=== PATIENT | female | born 1950 | race Caucasian/White ===

== ENCOUNTER 2021-03-25 19:53 | Inpatient (IN) | payer BC, MEDICARE, OTHER ==
[~2021-03-25] VITALS: Ht 165.1 cm; Wt 78.0 kg
[~2021-03-25 19:53] MED LIST: CLON0.5T PO
--- NOTE | 2021-03-25 19:53 | NUR ---
[id number] C/O RT LEG PAIN COMING FROM BACK AREA, STATES IT COULD BE SCIATICA DENIES ANY TRAUMA, PT AAOX4, DENEIS ANY SOB/CP. PLACED ON MONITOR. VSS, NAD PENDING ER PROVIDER ERIC
[2021-03-25] MEDS ORDERED: HYDROCODONE/APAP 5/325MG TABLET PO ONE (20:30)
[2021-03-25] MEDS ORDERED: HYDROCODONE/APAP 5/325MG TABLET ONE (20:50)
[2021-03-25 21:45] LABS: BASOPHILS # (AUTO) 0.1 /CMM (0.0-0.2); BASOPHILS % (AUTO) 0.7 % (0.0-2.0); EOSINOPHILS % (AUTO) 0.8 % (0.0-6.0); HEMATOCRIT 50 % (33-45); HEMOGLOBIN 16.9 g/dL (11.5-14.8); LYMPHOCYTES # (AUTO) 2.4 /CMM (0.8-4.8); LYMPHOCYTES % (AUTO) 25.7 % (20.0-44.0); MEAN CORPUSCULAR HGB CONC 34 g/dl (31.0-36.0); MEAN CORPUSCULAR VOLUME 97 fL (82-100); MONOCYTES # (AUTO) 0.5 /CMM (0.1-1.30); MONOCYTES % (AUTO) 5.6 % (2.0-12.0); NEUTROPHILS # (AUTO) 6.3 /CMM (1.8-8.9); NEUTROPHILS % (AUTO) 67.2 % (43.0-81.0); PLATELET COUNT (AUTO) 200 /CMM (150-450); RED BLOOD CELL COUNT(AUTO) 5.18 MIL/uL (4.0-5.2); WHITE BLOOD COUNT (AUTO) 9.4 K/uL (4.3-11.0)
[2021-03-25 21:54] LABS: CALCIUM, SERUM 9.1 mg/dL (8.5-10.1); CREATININE 0.8 mg/dL (0.6-1.3); POTASSIUM 4.4 mmol/L (3.5-5.1)
[2021-03-25] MEDS ORDERED: MAG HYDROX/AL HYDROX/SIMETH 30 ML UDC PO PRN (22:00)
[2021-03-25] MEDS ORDERED: Z GUARD REMEDY 2 OZ OINT TP PRN (22:00)
[2021-03-25] MEDS ORDERED: ONDANSETRON HCL/PF 4 MG/2 ML VIAL IVP PRN (22:00)
[2021-03-25] MEDS ORDERED: MAGNESIUM HYDROXIDE 30 ML UDC PO PRN (22:00)
[2021-03-25] MEDS ORDERED: MORPHINE SULFATE INJ 2 MG/ML DISP.SYRIN IV PRN (22:00)
[2021-03-25] MEDS ORDERED: ACETAMINOPHEN 325 MG TABLET PO PRN (22:00)
[2021-03-25 22:30] LABS: BILIRUBIN,URINE NEGATIVE (NEGATIVE); COLOR,URINE YELLOW (YELLOW); LEUKOCYTE ESTERASE ,URINE SMALL (NEGATIVE); NITRITE, URINE NEGATIVE (NEGATIVE); PROTEIN,URINE NEGATIVE (NEGATIVE); UGLUCOSE NEGATIVE (NEGATIVE); UROBILINOGEN,URINE 0.2 EU/dL (0.2)
[2021-03-25 22:40] LABS: BACTERIA,URINE 1+ /HPF (None Seen); SQUAMOUS EPITHELIAL CELL,UR Few /HPF (None Seen); URINE AMORPHOUS URATE Few /HPF (None Seen); WBC,URINE 21-50 /HPF (0-3)
--- NOTE | 2021-03-25 22:45 | NUR ---
REPORT GIVEN SHAQ STALLINGS FOR TATA
[2021-03-25] MEDS ORDERED: CARV20CP PO (22:47)
[2021-03-25] MEDS ORDERED: DIGO125T PO (22:47)
--- NOTE | 2021-03-25 22:56 | NUR ---
CALL FROM LAB RAPID COVID NEGATIVE.
--- NOTE | 2021-03-25 23:45 | NUR ---
MS SALES REPRESENTATIVE MALT LIQUORS NOTE PT TRANSPORTED VIA GURNEY TO UNIT AT THIS TIME. A/O X4. GAIT IS UNSTEADY. SOB NOTED ON EXERTION. PT ON 2L O2 VIA NC. NO S/S OF RESPIRATORY DISTRESS. PTS SKIN IS INTACT. NO C/O PAIN OR DISCOMFORT AT THIS TIME. IV ACCESS IN LAC #20 HL, INTACT AND PATENT. PT ORIENTED TO ROOM AND UNIT. SAFETY AND ASPIRATION PRECAUTIONS IN PLACE AND MAINTAINED AT ALL TIMES. BED IN LOWEST LOCKED POSITION, HOB ELEVATED, SIDE RAILS UP X2. CALL LIGHT AND TABLE WITHIN REACH. WILL CONTINUE TO MONITOR.
--- NOTE | 2021-03-25 23:45 | NUR ---
PT TRANSPORTED TO 3RD FLOOR
--- NOTE | 2021-03-25 23:50 | NUR ---
DURING BELONGINGS CHECK, 2 MEDICATION BOTTLES WERE NOTED IN PT'S PURSE AT BEDSIDE. PT REFUSED TRANSFER OF 2 MEDICATION BOTTLES TO PHARMACY. EXPLAINED RISKS AND BENEFITS. JOCY HUBER NP AWARE.
[2021-03-26 00:15] VITALS: BP 150/89
[2021-03-26] MEDS ORDERED: NICOTINE PATCH (21MG) 21 MG PATCH.TD24 TD STA (00:29)
--- NOTE | 2021-03-26 00:36 | NUR ---
PT INFORMED JOCY HUBER NP AT BEDSIDE THAT SHE SMOKES 4 PACKS DAILY. RECEIVED ORDER FOR NICOTINE PATCH 21 MG TD STAT. ORDERS READ BACK AND CLARIFIED. NOTED AND CARRIED OUT.
[2021-03-26] MEDS ORDERED: IPRATROPIUM BROMIDE 14 GM INHALER (or 12.9 GM) IH PRN (02:30)
[2021-03-26] MEDS ORDERED: ALBUTEROL FS 2.5 MG/0.5 ML VIAL.NEB NEB PRN (02:30)
[2021-03-26] MEDS: HYDROCODONE/APAP 5/325MG TABLET PO PRN ×4 (02:42→22:52)
--- NOTE | 2021-03-26 02:42 | NUR ---
MS RN PAIN PT C/O ACHING PAIN IN BILATERAL LOWER LEGS, RATED 7/10 ON PAIN SCALE. VSS. PER PT REQUEST, ADMINISTERED NORCO 5-325 MG PO Q4H PRN AT THIS TIME. WILL CONTINUE TO MONITOR.
[2021-03-26] MEDS ORDERED: VANCOMYCIN 1.25 GM in IV D5W 250 ML IV ONE (03:00)
[2021-03-26] MEDS ORDERED: clonazePAM 0.5 MG TABLET PO PRN (03:00)
[2021-03-26] MEDS ORDERED: VANCOMYCIN 1 GM VIAL ONE ×2 (03:59→04:03)
--- NOTE | 2021-03-26 05:19 | NUR ---
IV ACCESS INSERTED IN LEFT WRIST #22, GOOD BLOOD RETURN NOTED. INTACT, PATENT, AND FLUSHING WELL. PT TOLERATED WELL. WILL CONTINUE WITH PLAN OF CARE.
--- NOTE | 2021-03-26 06:55 | NUR ---
MS RN CLOSING NOTE PT IS AWAKE IN BED AT THIS TIME. A/O X4. GAIT IS UNSTEADY. PT ON 2L O2 VIA NC. NO SOB NOTED. NO S/S OF RESPIRATORY DISTRESS. IV ACCESS IS INTACT, PATENT, AND FLUSHING WELL. ALL NEEDS HAVE BEEN MET. PAIN MANAGEMENT ADMINISTERED PER ORDER. SAFETY AND ASPIRATION PRECAUTIONS IN PLACE AND MAINTAINED AT ALL TIMES. BED IN LOWEST LOCKED POSITION, HOB ELEVATED, SIDE RAILS UP X2. CALL LIGHT AND TABLE WITHIN REACH. WILL ENDORSE TO ONCOMING NURSE FOR CONTINUITY OF CARE.
[2021-03-26 06:59] LABS: BASOPHILS % (AUTO) 0.5 % (0.0-2.0); HEMATOCRIT 50 % (33-45); HEMOGLOBIN 16.4 g/dL (11.5-14.8); LYMPHOCYTES # (AUTO) 2.4 /CMM (0.8-4.8); LYMPHOCYTES % (AUTO) 24.3 % (20.0-44.0); MEAN CORPUSCULAR HGB CONC 33 g/dl (31.0-36.0); MEAN CORPUSCULAR VOLUME 99 fL (82-100); MONOCYTES # (AUTO) 0.6 /CMM (0.1-1.30); MONOCYTES % (AUTO) 6.3 % (2.0-12.0); NEUTROPHILS # (AUTO) 6.6 /CMM (1.8-8.9); NEUTROPHILS % (AUTO) 67.9 % (43.0-81.0); PLATELET COUNT (AUTO) 184 /CMM (150-450); WHITE BLOOD COUNT (AUTO) 9.8 K/uL (4.3-11.0)
[2021-03-26] MEDS ORDERED: IPRATROPIUM NEB FS 0.5 MG/2.5 ML AMPUL.NEB NEB PRN ×2 (07:00)
[2021-03-26 07:33] LABS: CALCIUM, SERUM 9.1 mg/dL (8.5-10.1); CREATININE 0.7 mg/dL (0.6-1.3); MAGNESIUM 2.2 mg/dL (1.8-2.4); PHOSPHORUS 3.5 mg/dL (2.5-4.9); POTASSIUM 5.1 mmol/L (3.5-5.1)
[2021-03-26 07:49] LABS: THYROID STIMULATING HORMONE 0.528 uIU/mL (0.358-3.74)
[2021-03-26] MEDS: PANTOPRAZOLE 40 MG TABLET.DR PO SCH (07:50)
[2021-03-26 08:45] VITALS: BP 178/99
[2021-03-26] MEDS ORDERED: DIGOXIN 0.125 MG TABLET PO SCH (09:00)
[2021-03-26] MEDS: CARVEDILOL 6.25 MG TABLET PO SCH ×2 (09:14→17:12)
[2021-03-26] MEDS: methylPREDNISolone SOD SUCC 40 MG/ML VIAL IV SCH (09:14)
[2021-03-26] MEDS ORDERED: LORAZEPAM 1 MG TABLET PO PRN (11:00)
[2021-03-26] MEDS: DIGOXIN 0.125 MG TABLET PO SCH (12:31)
[2021-03-26] MEDS: CEFTRIAXONE 1 G in IV D5W 50 ML IV SCH (13:20)
[2021-03-26 16:10] VITALS: BP 157/76
--- NOTE | 2021-03-26 18:45 | NUR ---
PIV INSERTED IN RAC G#22 AT THIS TIME, GOOD BLOOD RETURN NOTED, PT TOLERATED WELL. WILL CONTINUE WITH PLAN OF CARE
--- NOTE | 2021-03-26 18:47 | NUR ---
MS RN CLOSING NOTE PT IS AWAKE IN BED AT THIS TIME. A/O X4. GAIT IS UNSTEADY. PT ON 2L O2 VIA NC. NO SOB NOTED. NO S/S OF RESPIRATORY DISTRESS. IV ACCESS IS INTACT RAC 22, PATENT, AND FLUSHING WELL. ALL NEEDS HAVE BEEN MET. PAIN MANAGEMENT ADMINISTERED PER ORDER. SAFETY AND ASPIRATION PRECAUTIONS IN PLACE AND MAINTAINED AT ALL TIMES. BED IN LOWEST LOCKED POSITION, HOB ELEVATED, SIDE RAILS UP X2. CALL LIGHT AND TABLE WITHIN REACH.
[2021-03-26 20:00] VITALS: BP 143/81
--- NOTE | 2021-03-26 20:00 | NUR ---
MS RN OPENING NOTE PATIENT ALERT AND ORIENTED X 4. NO SIGNS OF DISTRESS OR SHORTNESS OF BREATH NOTED. PATIENT ABLE TO MAKE NEEDS KNOWN. SAFETY MEASURES IN PLACE, BED LOCKED IN LOWEST POSITION, SIDE RAILS UP X 2, AND CALL LIGHT WITHIN REACH, BED ALARM ON. WILL CONTINUE WITH PATIENT PLAN OF CARE
[2021-03-26] MEDS: ENOXAPARIN SODIUM 40 MG/0.4 ML DISP.SYRIN SQ SCH ×2 (22:05)
[2021-03-26] MEDS ORDERED: VANCOMYCIN 1 GM in IV D5W 250 ML IV SCH (23:00)
[2021-03-27] MEDS: HYDROCODONE/APAP 5/325MG TABLET PO PRN ×2 (03:36→11:03)
[2021-03-27 06:52] LABS: CALCIUM, SERUM 8.4 mg/dL (8.5-10.1); CREATININE 0.8 mg/dL (0.6-1.3); POTASSIUM 4.4 mmol/L (3.5-5.1)
--- NOTE | 2021-03-27 07:00 | NUR ---
MS CLOSING NOTES PATIENT RESTING IN BED. NO SIGNS OF DISTRESS OR SHORTNESS OF BREATH NOTED. PATIENT ABLE TO MAKE NEEDS KNOWN. NO REPORTS OF PAIN AT THIS TIME. MEDICATIONS GIVEN ORDERED. PATIENT NEEDS MET THROUGHOUT SHIFT. SAFETY MEASURES IN PLACE, BED LOCKED IN LOWEST POSITION, SIDE RAILS UP X 2, AND CALL LIGHT WITHIN REACH. WILL ENDORSE TO DAY SHIFT NURSE FOR CONTINUITY OF CARE
[2021-03-27 08:00] VITALS: BP 141/76
--- NOTE | 2021-03-27 08:01 | NUR ---
MS REJECT OPENER AND FILLER Opening Note: Patient received in bed A&O x 4, patient on room air with no s/s of respiratory distress with even non-labored breathing. Tremors noted, IV access intact and patent. Mild discomfort on right side noted, reposition for comfort. Skin warm and dry to touch. Safety precaution implemented with bed locked, bed in lowest position , bilateral side rails up and call light within easy reach. Will continue to monitor patient.
[2021-03-27] MEDS: PANTOPRAZOLE 40 MG TABLET.DR PO SCH (08:41)
[2021-03-27] MEDS: CARVEDILOL 6.25 MG TABLET PO SCH ×2 (08:42→16:00)
[2021-03-27] MEDS: methylPREDNISolone SOD SUCC 40 MG/ML VIAL IV SCH (08:43)
[2021-03-27 11:04] VITALS: BP 111/62
[2021-03-27] MEDS: CEFTRIAXONE 1 G in IV D5W 50 ML IV SCH (12:38)
[2021-03-27] MEDS: DIGOXIN 0.125 MG TABLET PO SCH (13:04)
[2021-03-27 16:00] VITALS: BP 153/90
[2021-03-27] MEDS ORDERED: TRAM50TA2 PO ×2 (16:09→16:17)
[2021-03-27] MEDS ORDERED: PANT40TA2 PO (16:09)
[2021-03-27] MEDS ORDERED: PRED20TA PO (16:09)
--- NOTE | 2021-03-27 18:34 | NUR ---
M/S BALE SEWER CLOSING NOTES: PATIENT RESTING IN BED COMFORTABLY ALERT AND ORIENTATED X4 ON ROOM AIR WITH NO S/S OF RESPIRATORY DISTRESS PRESENT. MET ALL OF PATIENT'S NEEDS, IV ACCESS INTACT AND PATENT. SKIN KEPT CLEAN, WARM, DRY TO TOUCH. SAFETY PRECAUTIONS IMPLEMENTED BED LOCKED, BED IN LOWEST POSITION, BILATERAL SIDE RAILS UP AND CALL LIGHT WITHIN EASY REACH. Addendum: 03/27/21 at 1839 by GUILLERMO GARAY BALE SEWER M/S BALE SEWER CLOSING NOTES: PATIENT RESTING IN BED COMFORTABLY ALERT AND ORIENTATED X4 ON ROOM AIR WITH NO S/S OF RESPIRATORY DISTRESS PRESENT. MET ALL OF PATIENT'S NEEDS, IV ACCESS INTACT AND PATENT. SKIN KEPT CLEAN, WARM, DRY TO TOUCH. SAFETY PRECAUTIONS IMPLEMENTED BED LOCKED, BED IN LOWEST POSITION, BILATERAL SIDE RAILS UP AND CALL LIGHT WITHIN EASY REACH. WILL ENDORSE PLAN OF CARE TO UPCOMING RN.
--- NOTE | 2021-03-27 19:58 | NUR ---
MS HEAD ORTHOPEDIC TEAM PHYSICIAN NOTE PATIENT MEDICALLY STABLE UPON DISCHARGE. EXIT CARE PROVIDED AND EDUCATION GIVEN. PATIENT NOT IN ANY DISTRESS, BREATHING EVEN AND UNLABORED. NO COMPLAINS OF PAIN OR DISCOMFORT AT THIS TIME. REPORT GIVEN TO EMT, WILL BE DISCHARGED TO HOME.
== END 2021-03-27 20:00 | disposition home or self-care (01) | DRG 551 ==
LOC: ER 19:56 → MED 22:33
PROVIDERS: ADMIT Registered Nurse; ATTEND Nurse Practitioner Acute Care
DX: M48.061 Spinal stenosis, lumbar region without neurogenic claudication (principal); I50.33 Acute on chronic diastolic (congestive) heart failure; L03.116 Cellulitis of left lower limb; L03.115 Cellulitis of right lower limb; J44.1 Chronic obstructive pulmonary disease with (acute) exacerbation; D68.59 Other primary thrombophilia; N39.0 Urinary tract infection, site not specified; M51.36 Other intervertebral disc degeneration, lumbar region; G89.4 Chronic pain syndrome; I48.91 Unspecified atrial fibrillation; I11.0 Hypertensive heart disease with heart failure; I50.810 Right heart failure, unspecified; E78.5 Hyperlipidemia, unspecified; F43.20 Adjustment disorder, unspecified; Z20.822 Contact with and (suspected) exposure to COVID-19; F41.1 Generalized anxiety disorder; Z91.19 Patient's noncompliance with other medical treatment and regimen; M85.80 Other specified disorders of bone density and structure, unspecified site; E11.9 Type 2 diabetes mellitus without complications; F17.210 Nicotine dependence, cigarettes, uncomplicated; Z73.6 Limitation of activities due to disability; R53.1 Weakness; I50.9 Heart failure, unspecified; F10.10 Alcohol abuse, uncomplicated; M54.31 Sciatica, right side; M25.80 Other specified joint disorders, unspecified joint; N85.8 Other specified noninflammatory disorders of uterus
CPT/HCPCS: 36415; 71045-TC; 72131-TC; 76642-RT-TC; 76770-TC; 76856-TC; 80048-TC; 80061-TC; 80162-TC; 81001; 83735-TC; 84100-TC; 84443-TC; 85025-TC; 87081-TC; 87086-TC; 93307-TC; 97112-TC; 97116-TC; 97530-TC; G0378; J0696; J1650; J2920; J3370; J7060